=== PATIENT | female | born 1990 | race Caucasian/White ===

== ENCOUNTER 2020-03-08 21:23 | Emergency (ER) | payer SELFPAY ==
[~2020-03-08] VITALS: Ht 167.6 cm; Wt 49.4 kg
[2020-03-08 22:58] LABS: BILIRUBIN NEGATIVE (NEGATIVE); BLOOD NEGATIVE (NEGATIVE); CLARITY CLEAR (CLEAR); COLOR YELLOW (YELLOW); GLUCOSE NEGATIVE (NEGATIVE); KETONE NEGATIVE (NEGATIVE); LEUKO ESTERASE NEGATIVE (NEGATIVE); NITRITE NEGATIVE (NEGATIVE); SPECIFIC GRAVITY 1.005 (1.005-1.030); UROBILINOGEN 0.2 E.U./dl (0.2-1.0)
[2020-03-08 23:05] LABS: BACTERIA TRACE
== END 2020-03-09 00:33 | disposition home or self-care (01) ==
LOC: ED 21:23
PROVIDERS: Nurse Practitioner Family
DX: S40.212A Abrasion of left shoulder, initial encounter (principal); R51 Headache; V47.5XXA Car driver injured in collision with fixed or stationary object in traffic accident, initial encounter; Y93.89 Activity, other specified; Y92.89 Other specified places as the place of occurrence of the external cause; Y99.8 Other external cause status

== ENCOUNTER 2022-08-15 10:09 | Emergency (ER) | payer OTHER ==
[~2022-08-15] VITALS: Ht 1645 cm; Wt 46.7 kg
[2022-08-15] MEDS ORDERED: VIBRA-TAB100 MG PO (11:05)
== END 2022-08-15 12:59 | disposition home or self-care (01) ==
LOC: ED 10:09
DX: S61.259A Open bite of unspecified finger without damage to nail, initial encounter (principal); Z88.0 Allergy status to penicillin; W54.0XXA Bitten by dog, initial encounter; Y93.89 Activity, other specified; Y92.9 Unspecified place or not applicable; Y99.8 Other external cause status